=== PATIENT | female | born 1985 | race African-American/Black ===

== ENCOUNTER 2021-11-19 03:28 | Emergency (ER) | payer MEDICAID ==
[~2021-11-19] VITALS: Ht 170.2 cm; Wt 127.0 kg
[2021-11-19] MEDS ORDERED: MAGNESIUM/ALUMINUM HYDROXIDE/SIMETHICONE 30ML UDC PO STA (05:48)
[2021-11-19] MEDS ORDERED: ONDANSETRON HCL 4MG/2ML INJ IV STA (05:48)
[2021-11-19] MEDS ORDERED: ACETAMINOPHEN 325MG TABLET PO STA (05:48)
[2021-11-19] MEDS ORDERED: FAMOTIDINE 20MG/2ML VIAL IV STA (05:48)
[2021-11-19] MEDS ORDERED: SODIUM CHLORIDE 0.9% 1,000 ML IV ONE (06:00)
[2021-11-19] MEDS ORDERED: ACETAMINOPHEN 325MG TABLET PO NR (06:08)
[2021-11-19] MEDS ORDERED: MAGNESIUM/ALUMINUM HYDROXIDE/SIMETHICONE 30ML UDC PO NR (06:15)
[2021-11-19 07:10] LABS: BASOPHILS % 0.3 % (0.0-2.0); EOSINOPHILS % 1.7 % (0.0-5.0); HEMATOCRIT. 39.8 % (36.0-48.0); HEMOGLOBIN. 13.2 g/dL (12.0-16.0); LYMPHOCYTES % 33.9 % (20.0-50.0); MEAN CORPUSCULAR HEMOGLOBIN 27.7 pg (28.0-32.0); MEAN CORPUSCULAR VOLUME 83.6 fL (81.0-99.0); MONOCYTES % 5.8 % (2.0-8.0); NEUTROPHILS % 58.3 % (40.0-76.0); PLATELET 264 x1000/uL (130-400); RED BLOOD CELL COUNT 4.76 mill/uL (4.2-5.4); RED CELL DISTRIBUTION WIDTH 13.5 % (11.6-14.6)
[2021-11-19 07:14] LABS: CLARITY URINE CLEAR (CLEAR); COLOR URINE YELLOW (YELLOW); KETONES URINE TRACE (NEGATIVE); LEUKOCYTE ESTERASE URINE NEGATIVE (NEGATIVE); NITRITE URINE NEGATIVE (NEGATIVE); OCCULT BLOOD URINE 2+ (NEGATIVE); PH URINE 5.5 (4.5-8.0); PROTEIN URINE TRACE (NEGATIVE); UROBILINOGEN URINE 0.2 E.U./dL (0.2-1.0)
[2021-11-19 07:15] LABS: CHLORIDE 107 mEq/L (98-107)
[2021-11-19 07:21] LABS: ETHANOL BLOOD < 10 mg/dL
[2021-11-19] MEDS ORDERED: PROT40 MT (07:59)
[2021-11-19 08:16] VITALS: BP 148/81
== END 2021-11-19 08:19 | disposition home or self-care (01) ==
LOC: ER 03:28
DX: R11.2 Nausea with vomiting, unspecified (principal); K21.9 Gastro-esophageal reflux disease without esophagitis; R10.9 Unspecified abdominal pain; F31.9 Bipolar disorder, unspecified; F20.9 Schizophrenia, unspecified; Z98.890 Other specified postprocedural states; F17.290 Nicotine dependence, other tobacco product, uncomplicated; Z88.5 Allergy status to narcotic agent
CPT/HCPCS: 36415; 80053; 80320; 81003; 81025; 83690; 85025; 96361; 96374; 96375; 99284; J2405; J3490; J7030; Z7610; G0480

== ENCOUNTER 2022-01-26 10:31 | Emergency (ER) | payer MEDICAID ==
[~2022-01-26] VITALS: Ht 162.6 cm; Wt 125.0 kg
[~2022-01-26 10:31] MED LIST: PROT40 MT
[2022-01-26 10:34] VITALS: BP 149/109
== END 2022-01-26 11:55 | disposition home or self-care (01) ==
LOC: ER 10:48
DX: R51.9 Headache, unspecified (principal); Z13.9 Encounter for screening, unspecified; Z98.890 Other specified postprocedural states; Z86.39 Personal history of other endocrine, nutritional and metabolic disease; Z86.59 Personal history of other mental and behavioral disorders
CPT/HCPCS: 99283

== ENCOUNTER 2022-01-26 12:35 | Emergency (ER) | payer MEDICAID ==
[~2022-01-26] VITALS: Ht 170.2 cm; Wt 143.0 kg
[2022-01-26 12:40] VITALS: BP 168/115
== END 2022-01-26 13:10 | disposition home or self-care (01) ==
LOC: ER 12:35
DX: Z13.9 Encounter for screening, unspecified (principal); I49.9 Cardiac arrhythmia, unspecified; Z88.5 Allergy status to narcotic agent; Z98.890 Other specified postprocedural states; Z86.39 Personal history of other endocrine, nutritional and metabolic disease
CPT/HCPCS: 81025; 93005; 99283

== ENCOUNTER 2022-02-06 22:18 | Emergency (ER) | payer MEDICAID ==
[~2022-02-06] VITALS: Ht 167.6 cm; Wt 136.0 kg
[2022-02-07] MEDS ORDERED: IBUPROFEN 600MG TABLET PO ONE (01:45)
[2022-02-07] MEDS ORDERED: METHOCARBAMOL 500MG TABLET PO ONE (01:45)
[2022-02-07 02:12] LABS: BASOPHILS % 0.7 % (0.0-2.0); EOSINOPHILS % 0.4 % (0.0-5.0); HEMATOCRIT. 42.3 % (36.0-48.0); HEMOGLOBIN. 13.7 g/dL (12.0-16.0); LYMPHOCYTES % 27.3 % (20.0-50.0); MEAN CORPUSCULAR HEMOGLOBIN 27.9 pg (28.0-32.0); MEAN CORPUSCULAR VOLUME 85.9 fL (81.0-99.0); MEAN PLATELET VOLUME 6.7 fl (7.4-10.4); NEUTROPHILS % 64.6 % (40.0-76.0); PLATELET 278 x1000/uL (130-400); RED BLOOD CELL COUNT 4.93 mill/uL (4.2-5.4); RED CELL DISTRIBUTION WIDTH 13.9 % (11.6-14.6)
[2022-02-07 02:14] LABS: CHLORIDE 105 mEq/L (98-107)
[2022-02-07] MEDS ORDERED: ONDANSETRON 4MG ODT PO ONE (02:15)
[2022-02-07 02:22] LABS: ETHANOL BLOOD < 10 mg/dL
[2022-02-07 03:14] VITALS: BP 115/75
[2022-02-07] MEDS ORDERED: DIPHENHYDRAMINE 25MG CAPSULE PO ONE (05:15)
== END 2022-02-07 03:14 | disposition home or self-care (01) ==
LOC: ER 22:18
DX: R51.9 Headache, unspecified (principal); R11.0 Nausea; F10.10 Alcohol abuse, uncomplicated; Y90.0 Blood alcohol level of less than 20 mg/100 ml; F31.9 Bipolar disorder, unspecified; E03.9 Hypothyroidism, unspecified; F20.9 Schizophrenia, unspecified; Z98.890 Other specified postprocedural states
CPT/HCPCS: 36415; 70450; 80053; 80320; 85025; 99284; Q0162; Q0163; G0480

== ENCOUNTER 2024-09-11 04:29 | Emergency (ER) | payer MEDICAID, OTHER ==
[~2024-09-11] VITALS: Ht 165.1 cm; Wt 114.0 kg
[2024-09-11 04:32] VITALS: O2SAT 98
[2024-09-11] MEDS: LORAZEPAM 1MG TABLET PO ONE ×2 (05:38→08:49)
[2024-09-11 06:10] LABS: BASOPHILS % 0.6 % (0.0-2.0); EOSINOPHILS % 0.1 % (0.0-5.0); HEMATOCRIT. 34.1 % (36.0-48.0); HEMOGLOBIN. 11.3 g/dL (12.0-16.0); LYMPHOCYTES % 24.8 % (20.0-50.0); MEAN CORPUSCULAR HEMOGLOBIN 27.8 pg (28.0-32.0); MEAN CORPUSCULAR HGB CONC 33.2 g/dL (31.0-37.0); MEAN CORPUSCULAR VOLUME 83.8 fL (81.0-99.0); MEAN PLATELET VOLUME 6.5 fl (7.4-10.4); MONOCYTES % 8.6 % (2.0-8.0); NEUTROPHILS % 65.9 % (40.0-76.0); PLATELET 353 x1000/uL (130-400); RED BLOOD CELL COUNT 4.06 mill/uL (4.2-5.4); RED CELL DISTRIBUTION WIDTH 14.4 % (11.6-14.6); WHITE BLOOD COUNT 6.3 x1000/uL (4.5-11.0)
[2024-09-11 06:11] LABS: CHLORIDE 103 mEq/L (98-107); POTASSIUM 3.8 mEq/L (3.5-5.1); SODIUM 136 mEq/L (136-145)
[2024-09-11 06:12] LABS: CARBON DIOXIDE 27 mEq/L (21-32)
[2024-09-11 06:17] LABS: CREATININE 0.7 mg/dL (0.6-1.0); GLUCOSE 104 mg/dL (70-105); UREA NITROGEN BLOOD 14 mg/dL (9-23)
[2024-09-11 06:19] LABS: ACETAMINOPHEN < 2 ug/mL (10-30)
[2024-09-11 06:23] LABS: CLARITY URINE CLEAR (CLEAR); COLOR URINE YELLOW (YELLOW); GLUCOSE URINE NEGATIVE (NEGATIVE); KETONES URINE NEGATIVE (NEGATIVE); LEUKOCYTE ESTERASE URINE TRACE (NEGATIVE); NITRITE URINE NEGATIVE (NEGATIVE); OCCULT BLOOD URINE NEGATIVE (NEGATIVE); PH URINE 6.5 (4.5-8.0); PROTEIN URINE NEGATIVE (NEGATIVE); SPECIFIC GRAVITY URINE 1.021 (1.005-1.030); UROBILINOGEN URINE 0.2 E.U./dL (0.2-1.0)
[2024-09-11 06:32] LABS: *AMPHETAMINES SCREEN URINE PRESUMPTIVE POSITIVE (NEGATIVE); *BARBITURATES SCREEN URINE NEGATIVE (NEGATIVE); *BENZODIAZEPINES SCREEN URINE NEGATIVE (NEGATIVE); *COCAINE SCREEN URINE PRESUMPTIVE POSITIVE (NEGATIVE); METHADONE URINE SCREEN NEGATIVE (NEGATIVE); OPIATES URINE SCREEN NEGATIVE (NEGATIVE); PHENCYCLIDINE URINE SCREEN NEGATIVE (NEGATIVE)
[2024-09-11 06:33] LABS: CANNABINOID URINE SCREEN NEGATIVE (NEGATIVE); ECSTASY MDMA SCREEN URINE CONF.TEST INDICATED (NEGATIVE)
[2024-09-11 06:35] LABS: RBC URINE 0-2 /hpf (0-2); SQUAMOUS EPITHELIAL CELL URINE 1+ /lpf (RARE/1+); WBC URINE 0-2 /hpf (0-2)
[2024-09-11 06:37] LABS: BACTERIA URINE TRACE
[2024-09-11 06:43] LABS: ETHANOL BLOOD < 10 mg/dL (<10)
[2024-09-11] MEDS: IBUPROFEN 600MG TABLET PO ONE (06:51)
[2024-09-11] MEDS: RISPERIDONE 1MG TABLET PO SCH (14:10)
[2024-09-11] MEDS: OLANZAPINE 10MG TABLET PO PRN (14:10)
[2024-09-11 20:02] VITALS: BP 119/77; PULSE 100; RESP 20; TEMP 35.9; O2SAT 100
[2024-09-11] MEDS ORDERED: NITROFURANTOIN 100MG M/M CAPSULE PO SCH (21:00)
== END 2024-09-11 20:34 ==
LOC: ER 04:29
DX: R45.851 Suicidal ideations (principal); I10 Essential (primary) hypertension; F17.200 Nicotine dependence, unspecified, uncomplicated; F14.10 Cocaine abuse, uncomplicated; F15.10 Other stimulant abuse, uncomplicated; F19.90 Other psychoactive substance use, unspecified, uncomplicated; Z20.822 Contact with and (suspected) exposure to COVID-19; Z88.5 Allergy status to narcotic agent
CPT/HCPCS: 36415; 80048; 80305; 80307; 80320; 80329; 81003; 81025; 85025; 87426; 93005; 99285; G0480

== ENCOUNTER 2024-11-23 07:52 | Emergency (ER) | payer OTHER, MEDICAID ==
[~2024-11-23] VITALS: Ht 167.6 cm; Wt 100.0 kg
[2024-11-23 07:56] VITALS: O2SAT 100
[2024-11-23] MEDS ORDERED: ONDANSETRON HCL 4MG/2ML INJ IV STA (08:03)
[2024-11-23] MEDS: SODIUM CHLORIDE 0.9% 1,000 ML IV ONE (08:15)
[2024-11-23 08:31] LABS: BASOPHILS % 0.7 % (0.0-2.0); DIFFERENTIAL COMMENT 0; HEMOGLOBIN. 11.5 g/dL (12.0-16.0); LYMPHOCYTES % 21.5 % (20.0-50.0); MEAN CORPUSCULAR HEMOGLOBIN 26.1 pg (28.0-32.0); MEAN CORPUSCULAR HGB CONC 32.8 g/dL (31.0-37.0); MEAN CORPUSCULAR VOLUME 79.7 fL (81.0-99.0); MEAN PLATELET VOLUME 6.4 fl (7.4-10.4); MONOCYTES % 5.8 % (2.0-8.0); PLATELET 388 x1000/uL (130-400); RED BLOOD CELL COUNT 4.39 mill/uL (4.2-5.4); RED CELL DISTRIBUTION WIDTH 14.5 % (11.6-14.6); WHITE BLOOD COUNT 8.1 x1000/uL (4.5-11.0)
[2024-11-23 08:46] LABS: CHLORIDE 95 mEq/L (98-107); POTASSIUM 3.8 mEq/L (3.5-5.1); SODIUM 129 mEq/L (136-145)
[2024-11-23 08:47] LABS: CARBON DIOXIDE 20 mEq/L (21-32)
[2024-11-23 08:48] LABS: CALCIUM 9.3 mg/dL (8.7-10.4)
[2024-11-23 08:52] LABS: CREATININE 0.7 mg/dL (0.6-1.0); GLUCOSE 115 mg/dL (70-105); UREA NITROGEN BLOOD 12 mg/dL (9-23)
[2024-11-23 08:53] LABS: ETHANOL BLOOD < 10 mg/dL (<10)
[2024-11-23 08:54] LABS: ACETAMINOPHEN < 2 ug/mL (10-30)
[2024-11-23 09:16] LABS: CLARITY URINE CLOUDY (CLEAR); COLOR URINE DARK YELLOW (YELLOW); GLUCOSE URINE NEGATIVE (NEGATIVE); KETONES URINE 3+ (NEGATIVE); LEUKOCYTE ESTERASE URINE TRACE (NEGATIVE); NITRITE URINE NEGATIVE (NEGATIVE); OCCULT BLOOD URINE NEGATIVE (NEGATIVE); PH URINE 5.5 (4.5-8.0); PROTEIN URINE 1+ (NEGATIVE); SPECIFIC GRAVITY URINE 1.034 (1.005-1.030); UROBILINOGEN URINE 0.2 E.U./dL (0.2-1.0)
[2024-11-23 09:33] LABS: BACTERIA URINE 2+; RBC URINE 0-2 /hpf (0-2); SQUAMOUS EPITHELIAL CELL URINE 2+ /lpf (RARE/1+); YEAST URINE NONE SEEN
[2024-11-23 10:04] LABS: *AMPHETAMINES SCREEN URINE PRESUMPTIVE POSITIVE (NEGATIVE); *BARBITURATES SCREEN URINE NEGATIVE (NEGATIVE); *BENZODIAZEPINES SCREEN URINE NEGATIVE (NEGATIVE); *COCAINE SCREEN URINE NEGATIVE (NEGATIVE); CANNABINOID URINE SCREEN NEGATIVE (NEGATIVE); METHADONE URINE SCREEN NEGATIVE (NEGATIVE); OPIATES URINE SCREEN NEGATIVE (NEGATIVE); PHENCYCLIDINE URINE SCREEN NEGATIVE (NEGATIVE)
[2024-11-23 10:05] LABS: ECSTASY MDMA SCREEN URINE CONF.TEST INDICATED (NEGATIVE)
[2024-11-23] MEDS: ONDANSETRON HCL 4MG/2ML INJ IV NR (13:39)
[2024-11-23 22:18] LABS: HCG SCREEN NEGATIVE
[2024-11-23] MEDS: OLANZAPINE 10MG TABLET PO STA (22:53)
[2024-11-24 06:00] VITALS: TEMP 36.8
[2024-11-24 14:48] VITALS: BP 116/72; PULSE 102; RESP 16; O2SAT 100
== END 2024-11-24 15:30 ==
LOC: ER 07:52
DX: R45.851 Suicidal ideations (principal); F31.4 Bipolar disorder, current episode depressed, severe, without psychotic features; F12.90 Cannabis use, unspecified, uncomplicated; F10.90 Alcohol use, unspecified, uncomplicated; F14.90 Cocaine use, unspecified, uncomplicated; F15.90 Other stimulant use, unspecified, uncomplicated; Z20.822 Contact with and (suspected) exposure to COVID-19; Z79.899 Other long term (current) drug therapy; Z88.5 Allergy status to narcotic agent; Y90.9 Presence of alcohol in blood, level not specified
CPT/HCPCS: 80305; 80048; 81003; 80307; 80329; 80320; 84703; 85025; 87086; 36415; 96361; 96374; 99285; 87426; J2405; J7030; G0480

== ENCOUNTER 2024-12-21 07:19 | Emergency (ER) | payer MEDICAID, OTHER ==
[~2024-12-21] VITALS: Ht 165.1 cm; Wt 82.0 kg
[2024-12-21 07:21] VITALS: O2SAT 100
[2024-12-21 08:35] LABS: BASOPHILS % 0.9 % (0.0-2.0); DIFFERENTIAL COMMENT 0; EOSINOPHILS % 0.1 % (0.0-5.0); HEMATOCRIT. 32.2 % (36.0-48.0); HEMOGLOBIN. 10.6 g/dL (12.0-16.0); LYMPHOCYTES % 26.5 % (20.0-50.0); MEAN CORPUSCULAR HEMOGLOBIN 25.9 pg (28.0-32.0); MEAN CORPUSCULAR HGB CONC 32.8 g/dL (31.0-37.0); MEAN CORPUSCULAR VOLUME 78.7 fL (81.0-99.0); MEAN PLATELET VOLUME 6.3 fl (7.4-10.4); MONOCYTES % 5.1 % (2.0-8.0); NEUTROPHILS % 67.4 % (40.0-76.0); PLATELET 360 x1000/uL (130-400); RED CELL DISTRIBUTION WIDTH 14.8 % (11.6-14.6); WHITE BLOOD COUNT 5.9 x1000/uL (4.5-11.0)
[2024-12-21 08:46] LABS: CHLORIDE 106 mEq/L (98-107); POTASSIUM 3.8 mEq/L (3.5-5.1); SODIUM 138 mEq/L (136-145)
[2024-12-21 08:47] LABS: CARBON DIOXIDE 24 mEq/L (21-32)
[2024-12-21 08:48] LABS: CALCIUM 8.9 mg/dL (8.7-10.4)
[2024-12-21 08:52] LABS: CREATININE 0.7 mg/dL (0.6-1.0); GLUCOSE 84 mg/dL (70-105); UREA NITROGEN BLOOD 11 mg/dL (9-23)
[2024-12-21 08:53] LABS: ETHANOL BLOOD < 10 mg/dL (<10)
[2024-12-21 09:07] LABS: HCG SCREEN NEGATIVE
[2024-12-21 12:09] LABS: CLARITY URINE CLOUDY (CLEAR); COLOR URINE DARK YELLOW (YELLOW); GLUCOSE URINE NEGATIVE (NEGATIVE); KETONES URINE 1+ (NEGATIVE); LEUKOCYTE ESTERASE URINE NEGATIVE (NEGATIVE); NITRITE URINE NEGATIVE (NEGATIVE); OCCULT BLOOD URINE NEGATIVE (NEGATIVE); PROTEIN URINE 1+ (NEGATIVE); SPECIFIC GRAVITY URINE 1.039 (1.005-1.030)
[2024-12-21 12:16] LABS: RBC URINE 0-2 /hpf (0-2); WBC URINE 0-2 /hpf (0-2)
[2024-12-21 12:17] LABS: BACTERIA URINE 1+; SQUAMOUS EPITHELIAL CELL URINE 2+ /lpf (RARE/1+); YEAST URINE NONE SEEN
[2024-12-21 12:28] LABS: *AMPHETAMINES SCREEN URINE PRESUMPTIVE POSITIVE (NEGATIVE); *BARBITURATES SCREEN URINE NEGATIVE (NEGATIVE); *BENZODIAZEPINES SCREEN URINE NEGATIVE (NEGATIVE); *COCAINE SCREEN URINE NEGATIVE (NEGATIVE); CANNABINOID URINE SCREEN NEGATIVE (NEGATIVE); ECSTASY MDMA SCREEN URINE CONF.TEST INDICATED (NEGATIVE); METHADONE URINE SCREEN NEGATIVE (NEGATIVE); OPIATES URINE SCREEN NEGATIVE (NEGATIVE); PHENCYCLIDINE URINE SCREEN NEGATIVE (NEGATIVE)
[2024-12-21] MEDS: OLANZAPINE 10 MG/VIAL IM ONE (19:02)
[2024-12-21] MEDS: DIPHENHYDRAMINE 25MG CAPSULE PO ONE (19:02)
[2024-12-22] MEDS ORDERED: LORAZEPAM 2MG/ML INJ IM ONE (03:30)
[2024-12-22] MEDS ORDERED: OLANZAPINE 10 MG/VIAL IM ONE (03:30)
[2024-12-22] MEDS: OLANZAPINE 10 MG/VIAL IM SCH (04:30)
[2024-12-22] MEDS: LORAZEPAM 2MG/ML UD SYRINGE IM SCH (04:30)
[2024-12-22] MEDS: ACETAMINOPHEN 325MG TABLET PO ONE (04:30)
[2024-12-22 14:18] VITALS: BP 132/92; PULSE 105; RESP 16; TEMP 36.9; O2SAT 100
[2024-12-22] MEDS ORDERED: OLANZAPINE 5MG TABLET ODT PO SCH (21:00)
== END 2024-12-22 14:20 | disposition short-term general hospital (02) ==
LOC: ER 07:19
DX: R45.851 Suicidal ideations (principal); F20.9 Schizophrenia, unspecified; F31.9 Bipolar disorder, unspecified; Z79.899 Other long term (current) drug therapy; Z88.5 Allergy status to narcotic agent; Z91.148 Patient's other noncompliance with medication regimen for other reason; Z20.822 Contact with and (suspected) exposure to COVID-19
CPT/HCPCS: 80305; 80048; 81003; 80320; 84703; 85025; 36415 ×2; 96372 ×2; 99285; 87426; 80307; 80329; Q0163; J3490 ×2; J2060; G0480